=== PATIENT | female | born 1965 ===

== ENCOUNTER → 2018-04-07 | Day surgery (SDC) | payer OTHER ==
[~2018-04-07] VITALS: Ht 162.6 cm; Wt 74.8 kg
[~2018-04-07] MED LIST: ADVAIR 250-501 EACH INH; ASPIR 8181 MG ORAL; D5 1/2NS 1,000 ML IV SCH; HYDROCHLOROTHIA25 MG ORAL; HYDROmorphone 1mg/ml Carpuject SUBQ PRN; LOSARTAN POTASS25 MG ORAL; METFORMIN HCL1000 M2 ORAL; Norco 5mg/325mg tab ORAL PRN; OXYCODONE-ACET1 EAC3 ORAL; SIMVASTATIN20 MG ORAL; Tylenol #3 tab (300mg/30mg) ORAL PRN; VENTOLIN HFA18 GM INH; ceFAZolin 1gm IVPB IVPB ONE; celeBREX 200mg Cap **SURGERY PATIENTS ONLY ORAL ONE; oxyCONTIN 20mg tab ORAL ONE
--- NOTE | 2018-04-07 08:46 | Operative Note - PDOC ---
Operative Note Operative Note Pre-op Diagnosis: right shoulder impingement Procedure: see op report Post-op Diagnosis: same as pre-op plus Operative Findings: consistent w/pre-op dx studies Anesthesia: regional Specimen: none Complications: none Condition: stable Estimated Blood Loss: none Implant(s) used?: No Gilbert Gifford MD Apr 07, 2018 08:46
--- NOTE | 2018-04-07 08:46 | Pre-Procedure Note/Attestation ---
Pre-Procedure Note/Attestation Complete Prior to Procedure Planned Procedure: right Procedure Narrative: shoulder arthroscopy, sad Indications for Procedure Pre-Operative Diagnosis: right shoulder impingement Attestation I attest that I discussed the nature of the procedure; its benefits; risks and complications; and alternatives (and the risks and benefits of such alternatives ), prior to the procedure, with the patient (or the patient's legal account development representative). I attest that, if there was a reasonable possibility of needing a blood transfusion, the patient (or the patient's legal account development representative) was given the [facility] of Health Services standardized written summary, pursuant to the [place] [place] Blood Safety Act ([place] Health and Safety Code # 1645, as amended). I attest that I re-evaluated the patient just prior to the surgery and that there has been no change in the patient's H&P, except as documented below: Gilbert Gifford MD Apr 07, 2018 08:46
== END | disposition home or self-care (01) ==
LOC: SUR 10:09
DX: M75.41 Impingement syndrome of right shoulder (principal); Z53.9 Procedure and treatment not carried out, unspecified reason

== ENCOUNTER 2018-05-05 09:13 | Day surgery (SDC) | payer OTHER ==
[2018-05-05] VITALS (10 sets, daily range): BP systolic 95–124; BP diastolic 60–84
[~2018-05-05] VITALS: Ht 162.6 cm; Wt 79.8 kg
[~2018-05-05 09:13] MED LIST changes: -D5 1/2NS 1,000 ML IV SCH; -HYDROmorphone 1mg/ml Carpuject SUBQ PRN; -Norco 5mg/325mg tab ORAL PRN; -Tylenol #3 tab (300mg/30mg) ORAL PRN; -ceFAZolin 1gm IVPB IVPB ONE; +ceFAZolin sod 1gm in D5W 55ml IVPB ONE; -oxyCONTIN 20mg tab ORAL ONE; +oxyCONTIN 20mg tab PO ONE
[2018-05-05] MEDS ORDERED: oxyCONTIN 20mg tab ORAL ONE (10:21)
[2018-05-05] MEDS ORDERED: celeBREX 200mg Cap **SURGERY PATIENTS ONLY ORAL ONE (10:21)
[2018-05-05] MEDS ORDERED: LORazepam Inj 2mg/ml 1ml IV PRN (10:45)
[2018-05-05] MEDS ORDERED: LR 1000ml 1,000 ML IVLG SCH (10:45)
[2018-05-05] MEDS ORDERED: Ketorolac 30mg Inj IV PRN (10:45)
[2018-05-05] MEDS ORDERED: DiphenhydrAMINE 50mg/ml Inj IVP PRN (10:45)
[2018-05-05] MEDS ORDERED: fentaNYL 100 mcg/2 mL IV PRN (10:45)
[2018-05-05] MEDS ORDERED: Hydromorphone 0.5mg/0.5ml inj IVP PRN (10:45)
[2018-05-05] MEDS ORDERED: Midazolam 2mg/2ml Inj IVP PRN (10:45)
[2018-05-05] MEDS ORDERED: Metoclopramide 10mg/2ml Inj IVP PRN (10:45)
--- NOTE | 2018-05-05 10:45 | Anethesia Preoperative Eval ---
Anesthesia Pre-op PMH/ROS General Date of Evaluation: May 05, 2018 Anesthesiologist: Kendrick ASA Score: ASA 2 Mallampati Score Class I : Soft palate, uvula, fauces, pillars visible Class II: Soft palate, uvula, fauces visible Class III: Soft palate, base of uvula visible Class IV: Only hard plate visible Mallampati Classification: Class II Surgeon: Balta Diagnosis: Right shoulder internal derangment Surgical Procedure: Right sshoulder arthroscopy with subacromial decompression Anesthesia History: none Family History: no anesthesia problems Allergies: Coded Allergies: No Known Allergies (Unverified , 03/23/18) Medications: see eMAR Patient NPO?: Yes NPO Date: May 04, 2018 NPO Time: 22:00 Past Medical History Cardiovascular: Reports: HTN, other - HLD; Denies: CAD, [place], valve dz, arrhythmia Pulmonary: Denies: asthma, COPD, KENDRA, other Gastrointestinal/Genitourinary: Denies: GERD, CRI, ESRD, other Neurologic/Psychiatric: Reports: depression/anxiety; Denies: dementia, CVA, TIA, other Endocrine: Reports: DM; Denies: hypothyroidism, steroids, other HEENT: Denies: cataract (L), cataract (R), glaucoma, [place]IL (L), [place]IL (R), other Hematology/Immune: Denies: anemia, DVT, bleeding disorder, other Musculoskeletal/Integumentary: Reports: OA; Denies: RA, DJD, DDD, edema, other PSxH Narrative: partial hysterectomy Anesthesia Pre-op Phys. Exam Physician Exam Last Vital Signs Date Time Temp Pulse Resp B/P (MAP) Pulse Ox O2 Delivery O2 Flow Rate FiO2 05/05/18 10:15 Room Air 05/05/18 10:13 98.5 89 18 124/84 98 Constitutional: NAD Cardiovascular: RRR Respiratory: CTA Airway Exam Mallampati Score: Class II MO: full ROM: full Teeth: intact Anesthesia Pre-op A/P Labs see chart Studies Pre-op Studies: EKG - sr Risk Assessment & Plan Assessment: ASA II Plan: GA with interscalne nerve block Status Change Before Surgery: No Pre-Antibiotics Drug: Vesta Mora MD May 05, 2018 10:45
[2018-05-05] MEDS ORDERED: EPINEPHrine 1mg/1ml Amp ONE (12:38)
[2018-05-05] MEDS ORDERED: Kenalog-40 1ml Vial ONE (12:38)
[2018-05-05] MEDS ORDERED: Bupivacaine 0.25% Inj 30ml INJ ONE (12:38)
[2018-05-05] MEDS ORDERED: Ketorolac 30mg Inj ONE ×2 (12:38→13:36)
[2018-05-05] MEDS ORDERED: Midazolam 2mg/2ml Inj ONE (12:46)
[2018-05-05] MEDS ORDERED: Lidocaine 1% MPF 10mg/ml 5ml ONE (12:46)
[2018-05-05] MEDS ORDERED: fentaNYL 100 mcg/2 mL IV ONE (12:46)
[2018-05-05] MEDS ORDERED: Propofol 200mg/20ml IV ONE (12:46)
[2018-05-05] MEDS ORDERED: LR 1000ml ONE (13:00)
[2018-05-05] MEDS ORDERED: NS Irrig 4000ml IRRIG ONE (13:00)
[2018-05-05] MEDS ORDERED: Sterile Water Irrig 1000ml IRRIG ONE (13:00)
--- NOTE | 2018-05-05 13:30 | Pre-Procedure Note/Attestation ---
Pre-Procedure Note/Attestation Complete Prior to Procedure Planned Procedure: right Procedure Narrative: shoulder arthroscopy, sad, possible rc repair Indications for Procedure Pre-Operative Diagnosis: right shoulder internal derangement Attestation I attest that I discussed the nature of the procedure; its benefits; risks and complications; and alternatives (and the risks and benefits of such alternatives ), prior to the procedure, with the patient (or the patient's legal hotel services sales representative). I attest that, if there was a reasonable possibility of needing a blood transfusion, the patient (or the patient's legal hotel services sales representative) was given the [facility] of Health Services standardized written summary, pursuant to the [place] Blood Safety Act ([place] Health and Safety Code # 1645, as amended). I attest that I re-evaluated the patient just prior to the surgery and that there has been no change in the patient's H&P, except as documented below: Gilbert Gifford MD May 05, 2018 13:30
--- NOTE | 2018-05-05 13:30 | Operative Note - PDOC ---
Operative Note Operative Note Pre-op Diagnosis: right shoulder internal derangement Procedure: see op report Post-op Diagnosis: same as pre-op plus Operative Findings: consistent w/pre-op dx studies Anesthesia: regional Specimen: none Complications: none Condition: stable Estimated Blood Loss: none Implant(s) used?: No Gilbert Gifford MD May 05, 2018 13:30
[2018-05-05] MEDS ORDERED: Metoclopramide 10mg/2ml Inj ONE (13:36)
[2018-05-05] MEDS ORDERED: Ropivacaine 5mg/ml Vial 30ml INJ ONE (13:36)
[2018-05-05] MEDS ORDERED: Dexamethasone 4mg/ml vial ONE (13:36)
--- NOTE | 2018-05-05 14:17 | Immediate Post-Op Evaluation ---
Immediate Post-Op Evalulation Immediate Post-Op Evalulation Procedure: Right shoulder arthroscopy with subacromial decompression Date of Evaluation: May 05, 2018 Time of Evaluation: 14:18 IV Fluids: 1L Blood Products: 0 Estimated Blood Loss: min Urinary Output: 0 Blood Pressure Systolic: 114 Blood Pressure Diastolic: 65 Pulse Rate: 84 Respiratory Rate: 16 O2 Sat by Pulse Oximetry: 99 Pain Score (1-10): 0 Nausea: No Vomiting: No Complications 0 Patient Status: awake, reacts, patent, none Hydration Status: adequate Drug: N/A Vesta Garcia MD May 05, 2018 14:17
--- NOTE | 2018-05-05 14:17 | 48 Hour Post Anesthesia Eval ---
Post Anesthesia Evaluation Procedure: Right shoulder arthroscopy with subacromial decompression Date of Evaluation: May 05, 2018 Airway: patent Nausea: No Vomiting: No Pain Intensity: 0 Hydration Status: adequate Cardiopulmonary Status: at baseline Mental Status/LOC: patient returned to baseline Post-Anesthesia Complications: 0 Follow-up care needed: ready to discharge Vesta Garcia MD May 05, 2018 14:17
--- NOTE | 2018-05-05 15:54 | NUR ---
AWAKE, ALERT. NO C/O PAIN OR DISCOMFORTS AT THIS TIME, DISCHARGE INSTRUCTION AND PRESCRIPTION WAS GIVEN AND EXPLAINED. PATIENT WENT HOME WITH SISTER IN STABLE CONDITION, ALL NEEDS ATTENDED.
--- NOTE | 2018-05-05 19:16 | Operative Note - Dictated ---
DATE OF OPERATION: 05/05/2018 PREOPERATIVE DIAGNOSIS: Right shoulder impingement syndrome. POSTOPERATIVE DIAGNOSIS: Right shoulder impingement syndrome. PROCEDURES: 1. Right shoulder diagnostic arthroscopy. 2. Right shoulder subacromial decompression bursectomy. SURGEON: Gilbert Gifford M.D. ANESTHESIA: Interscalene with general. INDICATION FOR PROCEDURE: The patient is a pleasant female, who has had progressive right shoulder pain and has some difficulty with overhead activities. She failed conservative treatment and elected to undergo right shoulder arthroscopy with decompression bursectomy. Risks, limitations, expectations, and complications of the procedure were discussed in detail. All questions addressed. DESCRIPTION OF PROCEDURE: After informed consent was obtained, the patient was brought to the operating room and placed under general anesthesia with interscalene block. The patient was then carefully placed in the beach-chair position. Right shoulder was prepped and draped in a sterile manner. Time-out was performed. A posterolateral stab incision was then made. Trocar was introduced into the glenohumeral joint with no significant chondral damage. The anterior labrum appeared to be intact. There was some fraying more consistent with derian complex. Superior labrum was intact. The subscapularis was intact along with the biceps tendon and the articular side of the rotator cuff. At this point, the camera was placed in the subacromial space with hypertrophic bursal tissue and a significant acromial spur. Acromioplasty was started from lateral to medial and completed from posterior to anterior. The bursectomy was completed. The bursal side of the rotator cuff was noted to be intact. At this point, the instruments were removed. Portal sites were closed using 3-0 Monocryl sutures. Steri-Strips and sterile dressing were applied. The patient was awoken and taken to recovery room with stable vital signs. ESTIMATED BLOOD LOSS: None. COMPLICATIONS: None. SPECIMENS: None. IMPLANTS: None. Gilbert Gifford M.D. DR: CURT JOB#: [id number] CC: STACY
[2018-05-05] MEDS ORDERED: HYDROmorphone 1mg/ml Carpuject SUBQ PRN (21:01)
[2018-05-05] MEDS ORDERED: Tylenol #3 tab (300mg/30mg) ORAL PRN (21:01)
[2018-05-05] MEDS ORDERED: HYDROcodone/Acetamin 5/325 tab ORAL PRN (21:01)
[2018-05-05] MEDS ORDERED: D5 1/2NS 1,000 ML IV SCH (21:01)
== END 2018-05-05 15:55 | disposition home or self-care (01) ==
LOC: SUR 09:13
DX: M75.41 Impingement syndrome of right shoulder (principal); I10 Essential (primary) hypertension; E11.9 Type 2 diabetes mellitus without complications; E78.5 Hyperlipidemia, unspecified; F32.9 Major depressive disorder, single episode, unspecified; F41.9 Anxiety disorder, unspecified; M19.90 Unspecified osteoarthritis, unspecified site; Z90.710 Acquired absence of both cervix and uterus
CPT/HCPCS: 29822; 82962; J0171; J0690; J1100; J1885; J2250; J2405; J2704; J2765; J2795; J3010; J3301; J3490; 94003; 94150